=== PATIENT | male | born 1965 | race Two or more races ===

== ENCOUNTER 2020-02-04 18:23 | Emergency (ER) | payer OTHER ==
[~2020-02-04] VITALS: Ht 172.7 cm; Wt 68.0 kg
[2020-02-04] MEDS ORDERED: TETanus/Pertussis (Acell)/Diphther VAC/PF (Tdap-Adult) 0.5ml syringe IMVAC ONE (20:00)
[2020-02-04 20:05] VITALS: BP 146/98
== END 2020-02-04 20:07 | disposition home or self-care (01) ==
LOC: ER 18:24
DX: S22.088A Other fracture of T11-T12 vertebra, initial encounter for closed fracture (principal); S30.0XXA Contusion of lower back and pelvis, initial encounter; Z72.89 Other problems related to lifestyle; W13.2XXA Fall from, out of or through roof, initial encounter; Y93.89 Activity, other specified; Y92.89 Other specified places as the place of occurrence of the external cause; Y99.8 Other external cause status
CPT/HCPCS: 72125; 72128; 72131; 90471; 90715; 99285

== ENCOUNTER 2021-03-30 17:20 | Emergency (ER) | payer OTHER ==
[~2021-03-30] VITALS: Ht 172.7 cm; Wt 73.6 kg
[2021-03-30 17:22] VITALS: BP 131/76
[2021-03-30] MEDS ORDERED: CEPH250T PO (19:10)
[2021-03-30] MEDS ORDERED: TERB250T4 PO (19:10)
== END 2021-03-30 19:21 | disposition home or self-care (01) ==
LOC: ER 17:20
DX: B35.1 Tinea unguium (principal); L08.9 Local infection of the skin and subcutaneous tissue, unspecified; Z72.89 Other problems related to lifestyle; Z79.899 Other long term (current) drug therapy
CPT/HCPCS: 99283